=== PATIENT | male | born 1975 | race Caucasian/White ===

== ENCOUNTER 2016-10-21 10:52 | Emergency (ER) | payer BC ==
[~2016-10-21] VITALS: Ht 185.4 cm; Wt 90.0 kg
[~2016-10-21 10:52] MED LIST: DIAZ10 PO; GABA800T PO; IBUP-232 PO; MEDR4PAK PO; PERC5TAB12 PO; PRED20 PO; RISP2TAB37 PO; TRAZ100T4 PO; ZOLO50TA PO
[2016-10-21 10:54] VITALS: BP 135/82; PULSE 88; RESP 16; TEMP 98; O2SAT 98
--- NOTE | 2016-10-21 11:21 | PD ---
HPI Chief Complaint: Injury Time Seen by Provider: 11:16 Travel History International Travel<30 days: No Contact w/Intl Traveler<30days: No Traveled to known affect area: No History of Present Illness HPI 41-year-old male presents to the emergency room via ambulance for evaluation of right ankle pain and swelling. Patient states he drank too much alcohol on [place] last night and doesn't remember what happened. He denies any other complaints at this time. He woke up this morning to go to the bathroom and tried to take a step but had excruciating pain. Pain is localized to the right anterior ankle with radiation to bilateral malleoli and into the foot. He called the ambulance because he cannot drive. He has not taken anything for pain. Denies paresthesias. PFSH Past Medical History Autoimmune Disease: No Bipolar Disorder: Yes Anxiety: Yes Depression: Yes Cancer: No Cardiovascular Problems: No Diabetes: No Diminished Hearing: No Genitourinary: No Implanted Vascular Access Dvce: No Musculoskeletal: Yes Neurologic: No Psychiatric: Yes (BIPOLAR) Reproductive: No Respiratory: No Immunizations Current: Yes Seizures: Yes Thyroid Disease: No Past Surgical History Endocrine Surgery: Yes (RIGHT BUTTOCK LANCED) Other Surgery: Yes (SPIDER BITE LANCED RIGHT BUTT) Social History Alcohol Use: Yes (RECREATIONALLY) Tobacco Use: Yes (1/2 ppd) Substance Use: No Allergies-Medications (Allergen,Severity, Reaction): Coded Allergies: Penicillin (Verified Allergy, Severe, 10/21/16) Reported Meds & Prescriptions Reported Meds & Active Scripts Active Percocet (Oxycodone-Acetaminophen) 5-325 mg Tab 1 Tab PO Q6H PRN Ibuprofen 600 Mg Tab 600 Mg PO Q6H PRN Medrol Dosepak (Methylprednisolone) 4 Mg Dspk 4 Mg PO DIRECTED Per Pharmacist direction Valium (Diazepam) 10 Mg Tab 10 Mg PO BID PRN Reported Trazodone (Trazodone HCl) 100 Mg Tab 100 Mg PO HS Zoloft (Sertraline HCl) 50 Mg Tab 50 Mg PO HS Risperdal (Risperidone) 2 Mg Tab 2 Mg PO HS Prednisone 20 Mg Tab 20 Mg PO BID Gabapentin 800 Mg Tab 800 Mg PO QID Review of Systems Except as stated in HPI: all other systems reviewed are Neg Physical Exam Narrative GENERAL: Well-nourished, well-developed male in no acute distress. Afebrile. SKIN: Warm and dry. HEAD: Normocephalic. EYES: No scleral icterus. No injection or drainage. NECK: Supple, trachea midline. No JVD or lymphadenopathy. CARDIOVASCULAR: Regular rate and rhythm without murmurs, gallops, or rubs. RESPIRATORY: Breath sounds equal bilaterally. No accessory muscle use. EXTREMITY: Right ankle extremely tender to palpation over the anterior aspect and on the lateral malleolus. There is mild to moderate edema over the lateral malleolus. Limited range of motion in the and ankle secondary to pain. 2+ dorsalis pedis pulse with less than 2 second capillary refill distally. Data Data Last Documented VS Vital Signs Date Time Temp Pulse Resp B/P Pulse Ox O2 Delivery O2 Flow Rate FiO2 10/21/16 10:54 98.0 88 16 135/82 98 Room Air Orders Ankle, Complete ([id number]) (10/21/16 ) Foot, Limited (2vws) (10/21/16 ) MDM Medical Decision Making Medical Screen Exam Complete: Yes Emergency Medical Condition: Yes Medical Record Reviewed: Yes Differential Diagnosis Sprain versus fracture versus high sprain versus strain Narrative Course 41-year-old male presents to the emergency room for evaluation of right ankle pain and swelling since this morning. States he injured it last night during a [employer] [place] republic[employer] but does not remember how because he drank too much alcohol. Patient denies any other injuries. Physical exam reveals mild to moderate edema over the lateral malleolus. There is limited range of motion of the ankle and foot secondary to pain. Right lower extremity is neurovascularly intact with 2+ dorsalis pedis pulse. Denies paresthesias. No knee pain. X- ray of the ankle and foot are negative for acute bony abnormality. There is ankle sprain. Patient discharged with crutches and ankle stirrup. Told to follow up with primary care physician or return to the emergency room for worsening symptoms. He understands and agrees to plan. Diagnosis Primary Impression: Ankle sprain Qualified Code: S93.401A - Sprain of right ankle, unspecified ligament, initial encounter Referrals: Primary Care Physician Patient Instructions: Ankle Sprain (ED), General Instructions Additional Instructions: Rest and drink plenty of fluids. Use crutches and splint as needed for pain. Take ibuprofen with food as directed, as needed for pain. Apply ice to the affected area for 20 minutes at a time, as needed for pain and swelling. Follow-up with a primary care physician. Return to the emergency room for worsening symptoms. Med/Other Pt SpecificInfo: Orthopedic Instructions Disposition: 01 DISCHARGE HOME Condition: Stable Ani Zarco Oct 21, 2016 11:21
--- NOTE | 2016-10-21 12:24 | RADRPT ---
EXAM DATE/TIME: 10/21/2016 12:05 [facility] COMPARISON: FOOT RIGHT LIMITED (2VWS), October 21, 2016, 12:07. INDICATIONS : Pain. MEDICAL HISTORY : None. SURGICAL HISTORY : None. ENCOUNTER: Initial ACUITY: 1 day PAIN SCORE: 5/10 LOCATION: Right lateral ankle. FINDINGS: Small well-corticated ossific fragment at the tip of the medial malleolus, nonacute. No acute fractur e or dislocation. Plantar calcaneal spur. Ankle mortise is approximated. CONCLUSION: No acute disease. Kunal Li MD on October 21, 2016 at 12:22 Board Certified Radiologist. This report was verified electronically.
--- NOTE | 2016-10-21 12:26 | RADRPT ---
EXAM DATE/TIME: 10/21/2016 12:07 [facility] COMPARISON: ANKLE RIGHT COMPLETE ([id number]), October 21, 2016, 12:05. INDICATIONS : Pain. MEDICAL HISTORY : None. SURGICAL HISTORY : None. ENCOUNTER: Initial ACUITY: 1 day PAIN SCORE: 5/10 LOCATION: Right lateral foot. FINDINGS: Two view examination of the right foot demonstrates no soft tissue swelling, dislocation, or fracture . The calcaneus is intact. Bony mineralization is normal. Plantar calcaneal spur. CONCLUSION: No acute disease. Kunal Li MD on October 21, 2016 at 12:24 Board Certified Radiologist. This report was verified electronically.
== END 2016-10-21 12:50 | disposition home or self-care (01) ==
LOC: NEPB 10:52
DX: S93.401A Sprain of unspecified ligament of right ankle, initial encounter (principal); X58.XXXA Exposure to other specified factors, initial encounter
CPT/HCPCS: 73610; 73620; 99283; E0113; L1906

== ENCOUNTER 2016-10-25 22:57 | Emergency (ER) | payer BC ==
[~2016-10-25] VITALS: Ht 185.4 cm; Wt 91.0 kg
[2016-10-25 23:00] VITALS: BP 122/83; PULSE 81; RESP 15; TEMP 98.1; O2SAT 98
--- NOTE | 2016-10-25 23:26 | PD ---
HPI Chief Complaint: Injury Time Seen by Provider: 23:15 Travel History International Travel<30 days: No Contact w/Intl Traveler<30days: No Traveled to known affect area: No History of Present Illness HPI 41-year-old left-hand dominant white male presents to emergency department for evaluation of left hand pain after allegedly fall the shower prior to arrival. He is complaining of pain along the lateral aspect exam. Mild to moderate intensity. Worse with movement. Some relief with elevation and ice. No other injuries. PFSH Past Medical History Narrative Medical Bipolar Autoimmune Disease: No Bipolar Disorder: Yes Anxiety: Yes Depression: Yes Cancer: No Cardiovascular Problems: No Diabetes: No Diminished Hearing: No Genitourinary: No Implanted Vascular Access Dvce: No Musculoskeletal: Yes Neurologic: No Psychiatric: Yes (BIPOLAR) Reproductive: No Respiratory: No Immunizations Current: Yes Seizures: Yes Thyroid Disease: No Tetanus Vaccination: < 5 Years Past Surgical History Narrative Surgical RIGHT BUTTOCK LANCED Other Surgery: Yes (SPIDER BITE LANCED RIGHT BUTT) Social History Alcohol Use: Yes (RECREATIONALLY) Tobacco Use: Yes (10/22 ppd) Substance Use: No Allergies-Medications (Allergen,Severity, Reaction): Coded Allergies: Penicillin (Verified Allergy, Severe, 10/25/16) Reported Meds & Prescriptions Reported Meds & Active Scripts Active Percocet (Oxycodone-Acetaminophen) 5-325 mg Tab 1 Tab PO Q6H PRN Ibuprofen 600 Mg Tab 600 Mg PO Q6H PRN Medrol Dosepak (Methylprednisolone) 4 Mg Dspk 4 Mg PO DIRECTED Per Pharmacist direction Valium (Diazepam) 10 Mg Tab 10 Mg PO BID PRN Reported Trazodone (Trazodone HCl) 100 Mg Tab 100 Mg PO HS Zoloft (Sertraline HCl) 50 Mg Tab 50 Mg PO HS Risperdal (Risperidone) 2 Mg Tab 2 Mg PO HS Prednisone 20 Mg Tab 20 Mg PO BID Gabapentin 800 Mg Tab 800 Mg PO QID Review of Systems Except as stated in HPI: all other systems reviewed are Neg Physical Exam Narrative GENERAL: This is a well-nourished, well-developed patient, in no apparent distress. SKIN: No rashes, ecchymoses or lesions. Warm and dry. HEAD: Atraumatic. Normocephalic. EYES: PERRL, EOMI, no discharge or injection. No scleral icterus. EARS: Clear NOSE: Nasal turbinates appear normal. THROAT: Mucosa pink and moist. Airway patent. NECK: Trachea midline. supple, moves head freely. LUNGS: Clear to auscultation. CV: Regular in rhythm. ABDOMEN: Soft nontender. EXT: No clubbing cyanosis. Examination of left upper extremity reveals pain along the fifth metacarpal. There is mild swelling. The skin is intact. No pain in the fingers, wrist, elbow and shoulder. The right upper extremity as well as lower extremities are without localizing bony tenderness or deformity. Median/ulnar/radial nerves intact. Data Data Last Documented VS Vital Signs Date Time Temp Pulse Resp B/P Pulse Ox O2 Delivery O2 Flow Rate FiO2 10/25/16 23:00 98.1 81 15 122/83 98 Room Air Orders Hand, Complete ([id number]) (10/25/16 23:14) Ice/Cold Pack (10/25/16 23:14) Fiberglass Splint Forearm Adul (10/25/16 ) Splint Or Brace Apply/Monitor (10/25/16 23:38) Acetamin-Hydrocod 325-5 Mg ([place] 5-325 (10/25/16 23:45) MDM Medical Decision Making Medical Screen Exam Complete: Yes Emergency Medical Condition: Yes Medical Record Reviewed: Yes Interpretation(s) Left hand: Positive fracture the fifth metacarpal Differential Diagnosis MDM: High Differential diagnoses: Fracture, sprain, strain, dislocation, contusion, neurovascular injury Narrative Course X-ray confirms a fifth metacarpal fracture. The patient is placed in an ulnar gutter splint. Diagnosis Primary Impression: Fracture of metacarpal of left hand, closed Qualified Code: S62.309A - Fracture of metacarpal of left hand, closed, initial encounter Patient Instructions: General Instructions, Narcotic given in the ED Additional Instructions: Rest. Elevation. Splint. Ice. Lortab for pain. 3 Advil every 6 hours. Follow-up with a orthopedic hand surgeon in the next 3-5 days. Return to the ER for emergencies. Med/Other Pt SpecificInfo: Prescription(s) given Scripts Hydrocodone-Acetaminophen (Lortab)5-325 Mg Tab1 Tab PO Q6H PRN (PAIN) #20 TAB Prov:Svetlana Razo MD 10/25/16 Disposition: 01 DISCHARGE HOME Condition: Stable Raimundo Anderson Oct 25, 2016 23:26
[2016-10-25] MEDS ORDERED: HYDR-3533 PO (23:39)
--- NOTE | 2016-10-25 23:41 | RADRPT ---
EXAM DATE/TIME: 10/25/2016 23:27 [facility] COMPARISON: No previous studies available for comparison. INDICATIONS : Patient fell today in shower. Complains of pain in left hand near 5th MCPJ. MEDICAL HISTORY : None. SURGICAL HISTORY : None. ENCOUNTER: Initial ACUITY: 1 day PAIN SCORE: 10/10 LOCATION: Left Hand FINDINGS: There is a fracture through the distal metaphysis of the 5th metacarpal with moderate palmar angulati on. Alignment at the 5th MCP joint is maintained. No radiopaque foreign bodies. The remainder of t he osseous structures of the hand are intact. CONCLUSION: Boxer's fracture with moderate palmar angulation. José Rojas MD on October 25, 2016 at 23:38 Board Certified Radiologist. This report was verified electronically.
[2016-10-25] MEDS ORDERED: ACETAMINOPHEN/HYDROcodone 325 MG/5 MG TAB PO ONE (23:45)
== END 2016-10-25 23:47 | disposition home or self-care (01) ==
LOC: NEPB 22:57
DX: S62.367A Nondisplaced fracture of neck of fifth metacarpal bone, left hand, initial encounter for closed fracture (principal); F17.210 Nicotine dependence, cigarettes, uncomplicated; W18.39XA Other fall on same level, initial encounter; Y93.E1 Activity, personal bathing and showering; Y99.8 Other external cause status
CPT/HCPCS: 29125; 73130

== ENCOUNTER 2017-04-12 13:35 | Emergency (ER) | payer SELFPAY ==
[~2017-04-12] VITALS: Ht 185.4 cm; Wt 90.0 kg
[~2017-04-12 13:35] MED LIST changes: +HYDR-3533 PO
[2017-04-12 13:37] VITALS: BP 130/72; PULSE 66; RESP 20; TEMP 98.2; O2SAT 99
[2017-04-12 14:01] LABS: BASOPHIL # 0.1 TH/MM3 (0-0.2); BASOPHIL % 1.2 % (0.0-2.0); EOSINOPHIL # 0.2 TH/MM3 (0-0.4); EOSINOPHIL % 3.8 % (0.0-4.0); HEMATOCRIT 42.9 % (39.0-51.0); HEMO FLAGS DIFF FINAL; LYMPH % 34.9 % (9.0-44.0); LYMPHOCYTE # 1.9 TH/MM3 (1.0-4.8); MEAN CELL VOLUME 85.9 FL (80.0-100.0); MEAN CORPUSCULAR HEMOGLOBIN 30.7 PG (27.0-34.0); MEAN CORPUSCULAR HGB CONC 35.7 % (32.0-36.0); MONO % 5.7 % (0.0-8.0); NEUT % 54.4 % (16.0-70.0); PLATELET COUNT 259 TH/MM3 (150-450); RED BLOOD COUNT 4.99 MIL/MM3 (4.50-5.90); RED CELL DISTRIBUTION WIDTH 13.1 % (11.6-17.2); WHITE BLOOD COUNT 5.5 TH/MM3 (4.0-11.0)
[2017-04-12 14:04] LABS: BLOOD, URINE NEG (NEG); GLUCOSE,URINE NEG (NEG); KETONE, URINE NEG (NEG); NITRITE,URINE NEG (NEG); URINE COLOR YELLOW (YELLW/STRAW)
[2017-04-12 14:07] LABS: COMMENT (UR) CULT NOT INDICATED; CULTURE IF INDICATED CULT NOT INDICATED
[2017-04-12 14:23] LABS: BICARBONATE 27.4 MEQ/L (21.0-32.0); POTASSIUM 3.6 MEQ/L (3.5-5.1)
[2017-04-12] MEDS ORDERED: TRAZ50TA12 PO (14:58)
--- NOTE | 2017-04-12 14:59 | PD ---
HPI Chief Complaint: Flank/Kidney Pain Time Seen by Provider: 14:38 Travel History International Travel<30 days: No Contact w/Intl Traveler<30days: No Traveled to known affect area: No History of Present Illness HPI This is a 41-year-old male who presents the emergency department reporting 3 weeks of left-sided flank pain. He says that initially started as dull but has gotten sharper and more severe over the past several days. He says he was just recently released from correction. He says his had some vomiting intermittently and denies any dysuria or hematuria. He does say he had a temperature of 100.0 at home. He does have a history of IV drug use and last used 2 months ago. PFSH Past Medical History Autoimmune Disease: No Bipolar Disorder: Yes Anxiety: Yes Depression: Yes Cancer: No Cardiovascular Problems: No Diabetes: No Diminished Hearing: No Genitourinary: No Implanted Vascular Access Dvce: No Musculoskeletal: Yes Neurologic: No Psychiatric: Yes (BIPOLAR) Reproductive: No Respiratory: No Immunizations Current: Yes Seizures: Yes Thyroid Disease: No Past Surgical History Other Surgery: Yes (SPIDER BITE LANCED RIGHT BUTT) Social History Alcohol Use: Yes (RECREATIONALLY) Tobacco Use: Yes (10/22 ppd) Substance Use: No Allergies-Medications (Allergen,Severity, Reaction): Coded Allergies: Penicillin (Verified Allergy, Severe, 10/25/16) Reported Meds & Prescriptions Reported Meds & Active Scripts Active Reported Trazodone (Trazodone HCl) 50 Mg Tab 50 Mg PO HS Risperdal (Risperidone) 2 Mg Tab 2 Mg PO HS Review of Systems Except as stated in HPI: all other systems reviewed are Neg Physical Exam Narrative GENERAL:Well appearing, no acute distress SKIN: Focused skin assessment warm and dry. HEAD: Atraumatic. Normocephalic. EYES: Pupils equal and round. No injection or drainage. ENT: Moist mucous membranes NECK: Trachea midline. CARDIOVASCULAR: Regular rate and rhythm. No murmur appreciated. RESPIRATORY: Clear to auscultation. Breath sounds equal bilaterally. GASTROINTESTINAL: Abdomen soft, non-tender, nondistended. : Left CVA tenderness. MUSCULOSKELETAL: No obvious deformities. No focal vertebral tenderness. NEUROLOGICAL: Awake and alert. No obvious cranial nerve deficits. Moving all extremities. PSYCHIATRIC: Appropriate mood and affect; insight and judgment normal. Data Data Last Documented VS Vital Signs Date Time Temp Pulse Resp B/P Pulse Ox O2 Delivery O2 Flow Rate FiO2 04/12/17 13:37 98.2 66 20 130/72 99 Room Air Orders Urinalysis - C+S If Indicated (04/12/17 13:40) Complete Blood Count With Diff (04/12/17 13:40) Basic Metabolic Panel (Bmp) (04/12/17 13:40) Ct Abd/Pel W/O Iv Contrast (04/12/17 ) Labs Laboratory Tests Test 04/12/17 13:45 White Blood Count 5.5 TH/MM3 Red Blood Count 4.99 MIL/MM3 Hemoglobin 15.3 GM/DL Hematocrit 42.9 % Mean Corpuscular Volume 85.9 FL Mean Corpuscular Hemoglobin 30.7 PG Mean Corpuscular Hemoglobin 35.7 % Concent Red Cell Distribution Width 13.1 % Platelet Count 259 TH/MM3 Mean Platelet Volume 8.6 FL Neutrophils (%) (Auto) 54.4 % Lymphocytes (%) (Auto) 34.9 % Monocytes (%) (Auto) 5.7 % Eosinophils (%) (Auto) 3.8 % Basophils (%) (Auto) 1.2 % Neutrophils # (Auto) 3.0 TH/MM3 Lymphocytes # (Auto) 1.9 TH/MM3 Monocytes # (Auto) 0.3 TH/MM3 Eosinophils # (Auto) 0.2 TH/MM3 Basophils # (Auto) 0.1 TH/MM3 CBC Comment DIFF FINAL Differential Comment Urine Color YELLOW Urine Turbidity CLEAR Urine pH 7.0 Urine Specific [place] 1.012 Urine Protein NEG mg/dL Urine Glucose (UA) NEG mg/dL Urine Ketones NEG mg/dL Urine Occult Blood NEG Urine Nitrite NEG Urine Bilirubin NEG Urine Urobilinogen LESS THAN 2.0 MG/DL Urine Leukocyte Esterase NEG Urine RBC LESS THAN 1 /hpf Urine WBC 1 /hpf Microscopic Urinalysis Comment CULT NOT INDICATED Sodium Level 143 MEQ/L Potassium Level 3.6 MEQ/L Chloride Level 108 MEQ/L Carbon Dioxide Level 27.4 MEQ/L Anion Gap 8 MEQ/L Blood Urea Nitrogen 4 MG/DL Creatinine 1.16 MG/DL Estimat Glomerular Filtration 69 ML/MIN Rate Random Glucose 85 MG/DL Calcium Level 9.0 MG/DL MDM Medical Decision Making Medical Screen Exam Complete: Yes Emergency Medical Condition: Yes Interpretation(s) Afebrile, no tachycardia, normotensive No leukocytosis Electrolytes are reassuring Urinalysis: No infection Last 24 hours Impressions Abdomen/Pelvis CT 04/12/17 0000 Signed Impressions: Service Date/Time: Wednesday, April 12, 2017 15:02 - CONCLUSION: 1. No acute findings in abdomen and pelvic CT. Specifically no renal calculi or evidence for obstructive uropathy. Raimundo Andino MD Differential Diagnosis Nephrolithiasis, pyelonephritis, musculoskeletal back pain, discitis, epidural abscess Narrative Course This is a 41-year-old male who presents to the emergency department with left- sided flank pain. He does have a history of IV drug use but he is afebrile here. Labs were obtained which demonstrate no leukocytosis and CT abdomen and pelvis was obtained which was reassuring. Patient's pain is in the left flank and really is not in the midline. I have a very low suspicion for discitis or epidural abscess given his absence of fever, tachycardia, or leukocytosis and his benign exam. I asked him to return to the emergency department if he develops fever, worsening pain, or new symptoms. Diagnosis Primary Impression: Flank pain Patient Instructions: General Instructions Additional Instructions: If you develop fever return to the emergency department immediately. If you develop weakness of your legs, difficulty walking, numbness of your legs or your genital or rectal area, loss of your bowel or bladder, or difficulty urinating return to the emergency department immediately. Followup with your primary care physician in one week if your symptoms have not improved. Med/Other Pt SpecificInfo: No Change to Meds Disposition: 01 DISCHARGE HOME Condition: Stable Odalys George MD Apr 12, 2017 14:58
--- NOTE | 2017-04-12 15:37 | RADRPT ---
EXAM DATE/TIME: 04/12/2017 15:02 [facility] COMPARISON: No previous studies available for comparison. INDICATIONS : Evaluate for renal stone, left flank pain. ORAL CONTRAST: No oral contrast ingested. RADIATION DOSE: 13.66 CTDIvol (mGy) MEDICAL HISTORY : Seizures. SURGICAL HISTORY : None. ENCOUNTER: Initial ACUITY: 3 weeks PAIN SCALE: 5/10 LOCATION: Left flank. TECHNIQUE: Volumetric scanning of the abdomen and pelvis was performed. Using automated exposure control and ad justment of the mA and/or kV according to patient size, radiation dose was kept as low as reasonably achievable to obtain optimal diagnostic quality images. DICOM format image data is available electro nically for review and comparison. FINDINGS: Mild dependent atelectasis at the lung bases. No acute findings in the liver, spleen, adrenals, kidne ys or pancreas. No calcified gallstones or biliary ductal dilatation. There is no free fluid. No free air. No pelvic mass or adenopathy. No bladder calculi. No acute bony CONCLUSION: 1. No acute findings in abdomen and pelvic CT. Specifically no renal calculi or evidence for obstruct alix uropathy. Raimundo Andino MD on April 12, 2017 at 15:21 Board Certified Radiologist. This report was verified electronically.
[2017-04-12] MEDS ORDERED: GADODIAMIDE PF 287 MG/ML 5 ML VIAL (for RAD MRI) IV ONE (17:46)
--- NOTE | 2017-04-12 18:25 | RADRPT ---
EXAM DATE/TIME: 04/12/2017 17:19 [facility] COMPARISON: CT ABDOMEN & PELVIS W/O CONTRAST, April 12, 2017, 15:02. INDICATIONS : Abscess. CONTRAST: 18 cc Omniscan (gadodiamide) IV MEDICAL HISTORY : None. SURGICAL HISTORY : Right knee. ENCOUNTER: Subsequent ACUITY: 1 day PAIN SCORE: 7/10 LOCATION: Lower back. TECHNIQUE: Multiplanar multisequence MRI of the lumbar spine was performed with and without contrast. FINDINGS: The most caudal appearing lumbar vertebra is numbered as L5. VERTEBRAE: Modic type I endplate changes seen at L5-S1. Remaining marrow signal is homogeneous. Vertebral body h eights are maintained. CONUS: Normal level and configuration. POST CONTRAST: No abnormal areas of contrast enhancement are seen. T12-L1: The thecal sac has a normal diameter. No evidence of disc bulge or protrusion. The neural foramina are patent bilaterally. L1-L2: The thecal sac has a normal diameter. No evidence of disc bulge or protrusion. The neural foramina are patent bilaterally. L2-L3: The thecal sac has a normal diameter. No evidence of disc bulge or protrusion. The neural foramina are patent bilaterally. L3-L4: The thecal sac has a normal diameter. No evidence of disc bulge or protrusion. The neural foramina are patent bilaterally. Moderate bony hypertrophy of the facets. L4-L5: There is disc desiccation with preservation of the disc space height. Linear high T2 signal involving the posterior annulus. A mild broad-based disc bulge. Moderate ligamentum flavum hypertrophy and bon y hypertrophy of the facets. Lateral recesses and central canal are patent. There is some narrowing o f the neural foramina bilaterally without impingement. L5-S1: Mild disc space height loss and mild disc desiccation. Central bulge. Lateral recesses and central ca nal are patent. Narrowing of the neural foramina bilaterally without impingement. Facets are unremark able. CONCLUSION: 1. Degenerative changes at L4-L5 and L5-S1 without neural impingement or central canal stenosis. Deta ils are given above. 2. No abscess. José Main Jr., MD on April 12, 2017 at 18:17 Board Certified Radiologist. This report was verified electronically.
[2017-04-12] MEDS ORDERED: NAPR500 PO (18:34)
[2017-04-12] MEDS ORDERED: TIZA4CAP3 PO (18:34)
--- NOTE | 2017-04-12 18:34 | PD ---
Data Data Last Documented VS Vital Signs Date Time Temp Pulse Resp B/P Pulse Ox O2 Delivery O2 Flow Rate FiO2 04/12/17 13:37 98.2 66 20 130/72 99 Room Air Orders Urinalysis - C+S If Indicated (04/12/17 13:40) Complete Blood Count With Diff (04/12/17 13:40) Basic Metabolic Panel (Bmp) (04/12/17 13:40) Ct Abd/Pel W/O Iv Contrast (04/12/17 ) Mri L Spine W&W/O Contrast (04/12/17 ) Gadodiamide Pf Inj (Omniscan Pf Inj) (04/12/17 17:46) Labs Laboratory Tests Test 04/12/17 13:45 White Blood Count 5.5 TH/MM3 Red Blood Count 4.99 MIL/MM3 Hemoglobin 15.3 GM/DL Hematocrit 42.9 % Mean Corpuscular Volume 85.9 FL Mean Corpuscular Hemoglobin 30.7 PG Mean Corpuscular Hemoglobin 35.7 % Concent Red Cell Distribution Width 13.1 % Platelet Count 259 TH/MM3 Mean Platelet Volume 8.6 FL Neutrophils (%) (Auto) 54.4 % Lymphocytes (%) (Auto) 34.9 % Monocytes (%) (Auto) 5.7 % Eosinophils (%) (Auto) 3.8 % Basophils (%) (Auto) 1.2 % Neutrophils # (Auto) 3.0 TH/MM3 Lymphocytes # (Auto) 1.9 TH/MM3 Monocytes # (Auto) 0.3 TH/MM3 Eosinophils # (Auto) 0.2 TH/MM3 Basophils # (Auto) 0.1 TH/MM3 CBC Comment DIFF FINAL Differential Comment Urine Color YELLOW Urine Turbidity CLEAR Urine pH 7.0 Urine Specific [place] 1.012 Urine Protein NEG mg/dL Urine Glucose (UA) NEG mg/dL Urine Ketones NEG mg/dL Urine Occult Blood NEG Urine Nitrite NEG Urine Bilirubin NEG Urine Urobilinogen LESS THAN 2.0 MG/DL Urine Leukocyte Esterase NEG Urine RBC LESS THAN 1 /hpf Urine WBC 1 /hpf Microscopic Urinalysis Comment CULT NOT INDICATED Sodium Level 143 MEQ/L Potassium Level 3.6 MEQ/L Chloride Level 108 MEQ/L Carbon Dioxide Level 27.4 MEQ/L Anion Gap 8 MEQ/L Blood Urea Nitrogen 4 MG/DL Creatinine 1.16 MG/DL Estimat Glomerular Filtration 69 ML/MIN Rate Random Glucose 85 MG/DL Calcium Level 9.0 MG/DL MDM Supervised Visit with RACHEL: No Narrative Course The patient was initially evaluated by the previous provider and signed out to me at the beginning of my shift pending MRI of the lumbar spine and disposition. See her note for further details. Briefly this is a 41-year-old male with a history of IVDU who is here for evaluation of flank pain and lower back pain. Symptoms have been going on for about 2 days and are worse with movements. The initial workup was for possible nephrolithiasis/ureterolithiasis. CBC and BMP are unremarkable. CT abdomen pelvis shows no acute intra-abdominal findings, specifically no ureteral calculi or signs of ureteral obstruction. Given the patient's history of IVDU, there was concern of possible discitis/epidural abscess, so MRI lumbar spine was ordered. MRI lumbar spine: CONCLUSION: 1. Degenerative changes at L4-L5 and L5-S1 without neural impingement or central canal stenosis. Details are given above. 2. No abscess. On my assessment of the patient he is sleeping comfortably. Currently he is pain-free. He reports that his symptoms are made worse with movements. There are no red flags for low back pain. Patient is stable for discharge home with outpatient follow-up with a primary care physician this week. He was informed on when to return to the emergency department. He verbalizes understanding and agreement with plan. Diagnosis Primary Impression: Flank pain Patient Instructions: General Instructions Additional Instruction: If you develop fever return to the emergency department immediately. If you develop weakness of your legs, difficulty walking, numbness of your legs or your genital or rectal area, loss of your bowel or bladder, or difficulty urinating return to the emergency department immediately. Followup with your primary care physician in one week if your symptoms have not improved. Scripts Tizanidine 4 Mg Cap4 Mg PO BID 14 Days Ref 0 Prov:Gildardo Pham MD 04/12/17 Naproxen (Naprosyn)500 Mg [id number] Mg PO BID 14 Days Ref 0 Prov:Gildardo Pham MD 04/12/17 Disposition: 01 DISCHARGE HOME Condition: Stable Gildardo Pham MD Apr 12, 2017 18:34
== END 2017-04-12 19:04 | disposition home or self-care (01) ==
LOC: NEPD 13:35
DX: R10.9 Unspecified abdominal pain (principal); M54.5 Low back pain; F17.200 Nicotine dependence, unspecified, uncomplicated
CPT/HCPCS: 72158; 74176; 80048; 81001; 85025; 99284; A9579

== ENCOUNTER 2017-06-24 18:41 | Emergency (ER) | payer SELFPAY ==
[~2017-06-24] VITALS: Ht 185.4 cm; Wt 92.0 kg
[~2017-06-24 18:41] MED LIST changes: -DIAZ10 PO; -GABA800T PO; -HYDR-3533 PO; -IBUP-232 PO; -MEDR4PAK PO; +NAPR500 PO; -PERC5TAB12 PO; -PRED20 PO; +TIZA4CAP3 PO; -TRAZ100T4 PO; +TRAZ50TA12 PO; -ZOLO50TA PO
[2017-06-24 18:49] VITALS: BP 143/90; PULSE 76; RESP 18; TEMP 98.1; O2SAT 98
[2017-06-24] MEDS ORDERED: GABA400C5 PO (19:04)
--- NOTE | 2017-06-24 19:27 | PD ---
HPI Chief Complaint: Musculoskeletal Complaint Time Seen by Provider: 19:19 Travel History International Travel<30 days: No Contact w/Intl Traveler<30days: No Traveled to known affect area: No History of Present Illness HPI 42-year-old female presents to the emergency room for evaluation of right knee pain and swelling after injury just prior to arrival. Patient states he tripped on a stair and fell forward landing directly on his right lateral knee. He has been able to walk on it but is fearful that his hardware was determined. Patient tibial plateau surgery 2 years ago in [place]. Patient reports pain and swelling localized to the right lateral knee without radiation. Pain is worsened with any range of motion. Denies paresthesias. He has not taken anything for symptoms. PFSH Past Medical History Autoimmune Disease: No Bipolar Disorder: Yes Anxiety: Yes Depression: Yes Cancer: No Cardiovascular Problems: No Diabetes: No Diminished Hearing: No Genitourinary: No Implanted Vascular Access Dvce: No Musculoskeletal: Yes Neurologic: No Psychiatric: Yes (BIPOLAR) Reproductive: No Respiratory: No Immunizations Current: Yes Seizures: Yes Thyroid Disease: No Tetanus Vaccination: < 5 Years Influenza Vaccination: Yes Past Surgical History Endocrine Surgery: Yes (RIGHT BUTTOCK LANCED) Other Surgery: Yes (SPIDER BITE LANCED RIGHT BUTTOCK) Social History Alcohol Use: Yes (RECREATIONALLY) Tobacco Use: Yes (1 ppd) Substance Use: No Allergies-Medications (Allergen,Severity, Reaction): Coded Allergies: penicillin G (Unverified Allergy, Severe, 06/24/17) Reported Meds & Prescriptions Reported Meds & Active Scripts Active Reported Gabapentin 400 Mg Cap 400 Cap PO QID Trazodone (Trazodone HCl) 50 Mg Tab 50 Mg PO HS Risperdal (Risperidone) 2 Mg Tab 2 Mg PO HS Review of Systems Except as stated in HPI: all other systems reviewed are Neg Physical Exam Narrative GENERAL: Well-nourished, well-developed male in no acute distress. Afebrile. Ambulatory. SKIN: Focused skin assessment warm/dry. Mild ecchymosis over the right lateral knee. HEAD: Normocephalic. EYES: No scleral icterus. No injection or drainage. NECK: Supple, trachea midline. No JVD or lymphadenopathy. CARDIOVASCULAR: Regular rate and rhythm without murmurs, gallops, or rubs. RESPIRATORY: Breath sounds equal bilaterally. No accessory muscle use. MUSCULOSKELETAL: No cyanosis. Mild to moderate edema of the right knee. No obvious effusion. Full range of motion. 2+ dorsalis pedis pulse. There is tenderness to palpation over the right lateral tibia. Data Data Last Documented VS Vital Signs Date Time Temp Pulse Resp B/P (MAP) Pulse Ox O2 Delivery O2 Flow Rate FiO2 06/24/17 18:49 98.1 76 18 143/90 (107) 98 Orders Orders Tibia/Fibula (Ap/Lat) (06/24/17 ) John Bandage (06/24/17 19:36) MDM Medical Decision Making Medical Screen Exam Complete: Yes Emergency Medical Condition: Yes Medical Record Reviewed: Yes Differential Diagnosis Fracture, internal derangement, sprain, strain Narrative Course 42-year-old male presents to the emergency room for evaluation of right lateral knee pain after trip and fall earlier today. Patient landed directly on his right knee. He is concerned because he has hardware from his surgery 2 years ago. Right lower extremity is neurovascularly intact with 2+ dorsalis pedis pulse. Patient has full range of motion. Mild edema of the knee without obvious effusion. X-ray shows no acute bony abnormality. No hardware noted. Patient states he must have hardware removed. There is a surgical scar present. Patient was reassured. He was told to follow-up with her primary care physician for outpatient CT or MRI if symptoms persist. Discharged with John wrap and crutches. He will return for worsening symptoms. He understands and agrees to plan. Diagnosis Primary Impression: Contusion of right knee Qualified Codes: S80.01XA - Contusion of right knee, initial encounter Referrals: Primary Care Physician Additional Instructions: Rest and drink plenty of fluids. Take ibuprofen with food as directed, as needed for pain. Apply ice to the affected area for 20 minutes at a time, as needed for pain and swelling. Follow-up with a primary care physician. Return to the emergency room for worsening symptoms. Med/Other Pt SpecificInfo: Prescription(s) given Disposition: 01 DISCHARGE HOME Condition: Stable Ani Zarco Jun 24, 2017 19:27
--- NOTE | 2017-06-24 19:33 | RADRPT ---
EXAM DATE/TIME: 06/24/2017 19:02 [facility] COMPARISON: No previous studies available for comparison. INDICATIONS : Right lower leg pain status post fall on stairs. MEDICAL HISTORY : Prior fracture, proximal tibia, right. SURGICAL HISTORY : Fracture repair, proximal tibia, right. ENCOUNTER: Initial ACUITY: 1 day PAIN SCORE: 9/10 LOCATION: Right proximal lower leg. FINDINGS: Two view examination of the right tibia demonstrates no evidence of fracture or dislocation. Bony mi neralization is normal. The soft tissue structures are intact. CONCLUSION: Negative trauma study. Nikko Mejia MD on June 24, 2017 at 19:31 Board Certified Radiologist. This report was verified electronically.
== END 2017-06-24 19:52 | disposition home or self-care (01) ==
LOC: PHEFT 18:41
DX: S80.01XA Contusion of right knee, initial encounter (principal); F17.200 Nicotine dependence, unspecified, uncomplicated; Z87.39 Personal history of other diseases of the musculoskeletal system and connective tissue; Z86.59 Personal history of other mental and behavioral disorders; Z86.69 Personal history of other diseases of the nervous system and sense organs; W01.0XXA Fall on same level from slipping, tripping and stumbling without subsequent striking against object, initial encounter
CPT/HCPCS: 73590; 99283; E0113

== ENCOUNTER 2017-09-22 14:45 | Emergency (ER) | payer SELFPAY ==
[~2017-09-22] VITALS: Ht 185.4 cm; Wt 98.0 kg
[~2017-09-22 14:45] MED LIST changes: +GABA400C5 PO; -NAPR500 PO; -TIZA4CAP3 PO
[2017-09-22 14:51] VITALS: BP 121/79; PULSE 61; RESP 18; TEMP 97.8; O2SAT 95
[2017-09-22] MEDS ORDERED: GABA600T PO (15:15)
[2017-09-22] MEDS ORDERED: RISP1 PO (15:15)
[2017-09-22] MEDS ORDERED: LEXA20TA PO (15:15)
--- NOTE | 2017-09-22 15:59 | PD ---
HPI Chief Complaint: Laceration/Skin Injury Time Seen by Provider: 15:50 Travel History International Travel<30 days: No Contact w/Intl Traveler<30days: No Traveled to known affect area: No History of Present Illness HPI 42-year-old male was shaving his scrotal area when he accidentally nicked the scrotal skin on the left side. There was bleeding and given the amount of bleeding he decided to come to the emergency room. Currently the bleeding has stopped. Patient says he otherwise feels okay. He does not recall his last tetanus shot. This happened 1 hour prior to coming to the emergency room. [facility] Past Medical History Narrative Medical List of his past medical, surgical, social and family history is reviewed from the nursing note. Autoimmune Disease: No Bipolar Disorder: Yes Anxiety: Yes Depression: Yes Cancer: No Cardiovascular Problems: No Diabetes: No Diminished Hearing: No Genitourinary: No Implanted Vascular Access Dvce: No Musculoskeletal: Yes Neurologic: No Psychiatric: Yes (BIPOLAR) Reproductive: No Respiratory: No Immunizations Current: Yes Seizures: Yes Thyroid Disease: No Past Surgical History Endocrine Surgery: Yes (RIGHT BUTTOCK LANCED) Other Surgery: Yes (SPIDER BITE LANCED RIGHT BUTTOCK) Social History Alcohol Use: Yes (RECREATIONALLY) Tobacco Use: Yes (1 ppd) Substance Use: No Allergies-Medications (Allergen,Severity, Reaction): Coded Allergies: penicillin G (Unverified Allergy, Severe, Anaphylaxis, 09/22/17) Comments List of his allergies reviewed from the nursing note. Reported Meds & Prescriptions Reported Meds & Active Scripts Active Reported Lexapro (Escitalopram Oxalate) 20 Mg Tab 20 Mg PO TID Risperdal (Risperidone) 1 Mg Tab 1 Mg PO DAILY Gabapentin 600 Mg Tab 600 Mg PO TID Trazodone (Trazodone HCl) 50 Mg Tab 50 Mg PO HS Risperdal (Risperidone) 2 Mg Tab 2 Mg PO HS Narrative Medication List of his home medications reviewed from the nursing note. Review of Systems Except as stated in HPI: all other systems reviewed are Neg Physical Exam Narrative GENERAL: Awake, alert, no obvious distress SKIN: Focused skin assessment warm/dry. HEAD: Atraumatic. Normocephalic. EYES: Pupils equal and round. No scleral icterus. No injection or drainage. ENT: No nasal bleeding or discharge. Mucous membranes pink and moist. NECK: Trachea midline. No JVD. CARDIOVASCULAR: Regular rate and rhythm. No murmur appreciated. RESPIRATORY: No accessory muscle use. Clear to auscultation. Breath sounds equal bilaterally. GASTROINTESTINAL: Abdomen soft, non-tender, nondistended. Hepatic and splenic margins not palpable. : Small 0.5 cm superficial laceration on the left scrotal skin. No active bleeding. MUSCULOSKELETAL: No obvious deformities. No clubbing. No cyanosis. No edema. NEUROLOGICAL: Awake and alert. No obvious cranial nerve deficits. Motor grossly within normal limits. Normal speech. PSYCHIATRIC: Appropriate mood and affect; insight and judgment normal. Data Data Last Documented VS Orders Orders Tetanus/Diphtheria Tox Adult (Tetanus/Di (09/22/17 16:15) Ed Discharge Order (09/22/17 16:22) [facility] Medical Decision Making Medical Screen Exam Complete: Yes Emergency Medical Condition: Yes Medical Record Reviewed: Yes Differential Diagnosis Scrotal laceration Narrative Course 4:30 PM patient was given a tetanus shot. Steri-Strips was applied to the wound. He will be discharged home. Patient is comfortable with that plan. Procedures EKG Prior to Arrival: No Diagnosis Primary Impression: Scrotal laceration Qualified Codes: S31.31XA - Laceration without foreign body of scrotum and testes, initial encounter Referrals: Primary Care Physician Additional Instructions: Keep the wound clean and dry. The Steri-Strip will start peeling off on its own once the wound starts to heal. In any case do not peel it off before 5 days. Return to the ER if condition worsens or any other new concerns. Med/Other Pt SpecificInfo: No Change to Meds Disposition: 01 DISCHARGE HOME Condition: Stable Svetlana Razo MD Sep 22, 2017 15:59
[2017-09-22] MEDS ORDERED: TETANUS/DIPHTHERIA TOXOID ADULT 0.5 ML VIAL IM ONE (16:15)
== END 2017-09-22 17:00 | disposition home or self-care (01) ==
LOC: PHED 14:45
DX: S31.31XA Laceration without foreign body of scrotum and testes, initial encounter (principal); F31.9 Bipolar disorder, unspecified; F17.210 Nicotine dependence, cigarettes, uncomplicated; W26.9XXA Contact with unspecified sharp object(s), initial encounter; Z88.0 Allergy status to penicillin; Z79.899 Other long term (current) drug therapy
CPT/HCPCS: 90471; 90714

== ENCOUNTER 2017-10-01 09:25 | Emergency (ER) | payer BC ==
[~2017-10-01] VITALS: Ht 185.4 cm; Wt 97.0 kg
[~2017-10-01 09:25] MED LIST changes: -GABA400C5 PO; +GABA600T PO; +LEXA20TA PO; +RISP1 PO
[2017-10-01 09:33] VITALS: BP 147/81; PULSE 88; RESP 20; TEMP 98.3; O2SAT 96
[2017-10-01] MEDS ORDERED: BENZ100 PO (10:09)
--- NOTE | 2017-10-01 10:09 | PD ---
HPI Chief Complaint: Cold / Flu Symptoms Time Seen by Provider: 09:54 Travel History International Travel<30 days: No Contact w/Intl Traveler<30days: No Traveled to known affect area: No History of Present Illness HPI 42-year-old male here with cough, nasal congestion, sore throat times one day. He coughed frequently last night making it difficult to sleep prompting his visit today. He denies fever, chills, chest pain, shortness of breath, abdominal pain, nausea vomiting or diarrhea. Symptoms severity is moderate. No aggravating or alleviating factors. PFSH Past Medical History Autoimmune Disease: No Bipolar Disorder: Yes Anxiety: Yes Depression: Yes Cancer: No Cardiovascular Problems: No Diabetes: No Diminished Hearing: No Genitourinary: No Implanted Vascular Access Dvce: No Musculoskeletal: Yes Neurologic: No Psychiatric: Yes (BIPOLAR) Reproductive: No Respiratory: No Immunizations Current: Yes Seizures: Yes Thyroid Disease: No Past Surgical History Endocrine Surgery: Yes (RIGHT BUTTOCK LANCED) Other Surgery: Yes (SPIDER BITE LANCED RIGHT BUTTOCK) Social History Alcohol Use: Yes (RECREATIONALLY) Tobacco Use: Yes (1 ppd) Substance Use: No Allergies-Medications (Allergen,Severity, Reaction): Coded Allergies: penicillin G (Verified Allergy, Severe, Anaphylaxis, 10/01/17) Reported Meds & Prescriptions Reported Meds & Active Scripts Active Reported Lexapro (Escitalopram Oxalate) 20 Mg Tab 20 Mg PO TID Risperdal (Risperidone) 1 Mg Tab 1 Mg PO DAILY Gabapentin 600 Mg Tab 600 Mg PO TID Trazodone (Trazodone HCl) 50 Mg Tab 50 Mg PO HS Risperdal (Risperidone) 2 Mg Tab 2 Mg PO HS Review of Systems Except as stated in HPI: all other systems reviewed are Neg HENT: Positive: Sore Throat, Rhinitis, Congestion Physical Exam Narrative GENERAL: Alert male in no distress SKIN: Warm and dry. HEAD: Normocephalic. EYES: No scleral icterus. No injection or drainage. THROAT: Mild pharyngeal erythema no tonsillar hypertrophy or exudate. NECK: Supple, trachea midline. No JVD or lymphadenopathy. CARDIOVASCULAR: Regular rate and rhythm without murmurs, gallops, or rubs. RESPIRATORY: Breath sounds equal bilaterally. No accessory muscle use. GASTROINTESTINAL: Abdomen soft, non-tender, nondistended. MUSCULOSKELETAL: No cyanosis, or edema. BACK: Nontender without obvious deformity. No CVA tenderness. Data Data Last Documented VS Vital Signs Date Time Temp Pulse Resp B/P (MAP) Pulse Ox O2 Delivery O2 Flow Rate FiO2 10/01/17 09:33 98.3 88 20 147/81 (103) 96 MDM Medical Decision Making Medical Screen Exam Complete: Yes Emergency Medical Condition: Yes Differential Diagnosis URI, influenza, bronchitis, pneumonia Narrative Course 42-year-old male here with viral URI like symptoms. He is nontoxic appearing. His vital signs are stable. Symptomatically treatment discussed. Diagnosis Primary Impression: URI (upper respiratory infection) Qualified Codes: J06.9 - Acute upper respiratory infection, unspecified Referrals: [facility] Departure Forms: Tests/Procedures, Work Release Enter return to work date: Oct 03, 2017 Additional Instructions: Take [id number] ibuprofen 600 800 mg every 6-8 hours as needed for pain and fever. Stay well hydrated by drinking plenty of fluids. Scripts Benzonatate (Tessalon Perljose) 100 Mg Cap 200 MG PO TID Y for COUGH, #15 CAP 0 Refills Prov: Madelaine Shepard 10/01/17 Disposition: 01 DISCHARGE HOME Condition: Stable Madelaine Shepard Oct 01, 2017 10:09
== END 2017-10-01 10:15 | disposition home or self-care (01) ==
LOC: PHED 09:25
DX: J06.9 Acute upper respiratory infection, unspecified (principal); F17.200 Nicotine dependence, unspecified, uncomplicated; F31.9 Bipolar disorder, unspecified
CPT/HCPCS: 99283

== ENCOUNTER 2017-11-11 11:06 | Emergency (ER) | payer BC ==
[2017-11-11] MEDS: MORPHINE SULFATE 2 MG/ML INJ IM (12:42)
== END 2017-11-11 13:06 | disposition home or self-care (01) ==
LOC: NEPD 11:06
DX: M54.41 Lumbago with sciatica, right side (principal)
CPT/HCPCS: 96372; 99284-25

== ENCOUNTER 2018-02-17 16:27 | Emergency (ER) | payer BC ==
[~2018-02-17 16:27] MED LIST changes: -GABA600T PO; +PRED20 PO; -TRAZ50TA12 PO
[2018-02-17 16:31] VITALS: BP 143/94; PULSE 63; RESP 20; TEMP 98.5; O2SAT 96
--- NOTE | 2018-02-17 16:46 | PD ---
HPI Chief Complaint: Seizure Time Seen by Provider: 16:32 Travel History International Travel<30 days: No Contact w/Intl Traveler<30days: No Traveled to known affect area: No History of Present Illness HPI This patient's coworker called the ambulance. At work he was feeling like he might have a seizure. He did not actually have one today. He reported that he had a seizure yesterday. He has history of seizure disorder. He takes Neurontin 800 mg 4 times daily for his seizures. He follows with a neurologist regularly. He denies any alcohol or illicit drugs recently. His last cocaine use was 1-1/2 years ago. He has never done IV drugs. He feels okay now. Symptom severity is mild. He said seizure disorder for many years. Duration of his symptoms at work was 30 minutes. No alleviating factors. 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) Diabetes: No Diminished Hearing: No Genitourinary: No Implanted Vascular Access Dvce: No Musculoskeletal: Yes Neurologic: No Psychiatric: Yes (BIPOLAR) Reproductive: No Respiratory: No Immunizations Current: Yes Seizures: Yes Thyroid Disease: No Past Surgical History Endocrine Surgery: Yes (RIGHT BUTTOCK LANCED) Other Surgery: Yes (SPIDER BITE LANCED RIGHT BUTTOCK) Social History Alcohol Use: Yes (DENIES) Tobacco Use: Yes (1 ppd) Substance Use: No Allergies-Medications (Allergen,Severity, Reaction): Coded Allergies: penicillin G (Verified Allergy, Severe, Anaphylaxis, 11/11/17) Reported Meds & Prescriptions Reported Meds & Active Scripts Active Prednisone 20 Mg Tab 60 Mg PO DAILY 5 Days Reported Lexapro (Escitalopram Oxalate) 20 Mg Tab 20 Mg PO TID Risperdal (Risperidone) 1 Mg Tab 1 Mg PO DAILY Risperdal (Risperidone) 2 Mg Tab 2 Mg PO HS Review of Systems General / Constitutional: No: Fever Eyes: No: Visual changes HENT: No: Headaches Cardiovascular: No: Chest Pain or Discomfort Respiratory: No: Shortness of Breath Gastrointestinal: No: Abdominal Pain Genitourinary: No: Dysuria Musculoskeletal: No: Pain Skin: No Rash Neurologic: Positive: Seizures, No: Weakness Psychiatric: No: Depression Endocrine: No: Polydipsia Hematologic/Lymphatic: No: Easy Bruising Physical Exam Narrative GENERAL: Well-nourished, well-developed patient in no apparent distress. SKIN: Focused skin assessment reveals no rash and nodules. Skin is Warm and dry. HEAD: Atraumatic. Normocephalic. EYES: Pupils equal and round. No scleral icterus. No injection or drainage. ENT: No nasal bleeding or discharge. Mucous membranes pink and moist. NECK: Trachea midline. No JVD. CARDIOVASCULAR: Regular rate and rhythm. No murmur appreciated. RESPIRATORY: No accessory muscle use. Clear to auscultation. Breath sounds equal bilaterally. GASTROINTESTINAL: Abdomen soft, non-tender, nondistended. Hepatic and splenic margins not palpable. MUSCULOSKELETAL: No obvious deformities. No clubbing. No cyanosis. No edema. NEUROLOGICAL: Awake and alert. No obvious cranial nerve deficits. Motor grossly within normal limits. Normal speech. PSYCHIATRIC: Appropriate mood and affect; insight and judgment normal. Data Data Last Documented VS Vital Signs Date Time Temp Pulse Resp B/P (MAP) Pulse Ox O2 Delivery O2 Flow Rate FiO2 02/17/18 16:31 98.5 63 20 143/94 (110) 96 Orders Orders Complete Blood Count With Diff (02/17/18 16:38) Basic Metabolic Panel (Bmp) (02/17/18 16:38) Labs Laboratory Tests Test 02/17/18 16:44 White Blood Count 12.3 TH/MM3 Red Blood Count 4.99 MIL/MM3 Hemoglobin 14.9 GM/DL Hematocrit 43.5 % Mean Corpuscular Volume 87.2 FL Mean Corpuscular Hemoglobin 29.9 PG Mean Corpuscular Hemoglobin Concent 34.2 % Red Cell Distribution Width 12.3 % Platelet Count 212 TH/MM3 Mean Platelet Volume 8.3 FL Neutrophils (%) (Auto) 79.7 % Lymphocytes (%) (Auto) 11.4 % Monocytes (%) (Auto) 4.0 % Eosinophils (%) (Auto) 3.6 % Basophils (%) (Auto) 1.3 % Neutrophils # (Auto) 9.8 TH/MM3 Lymphocytes # (Auto) 1.4 TH/MM3 Monocytes # (Auto) 0.5 TH/MM3 Eosinophils # (Auto) 0.4 TH/MM3 Basophils # (Auto) 0.2 TH/MM3 CBC Comment DIFF FINAL Differential Comment Blood Urea Nitrogen 7 MG/DL Creatinine 1.10 MG/DL Random Glucose 87 MG/DL Calcium Level 9.1 MG/DL Sodium Level 140 MEQ/L Potassium Level 3.5 MEQ/L Chloride Level 104 MEQ/L Carbon Dioxide Level 32.5 MEQ/L Anion Gap 4 MEQ/L Estimat Glomerular Filtration Rate 73 ML/MIN MDM Medical Decision Making Medical Screen Exam Complete: Yes Emergency Medical Condition: Yes Medical Record Reviewed: Yes Differential Diagnosis Breakthrough seizure, anxiety, tremor Narrative Course I have reviewed the patient's electronic medical record. Patient was here for seizure in 2010. Positive cocaine at that time IV placed and labs sent He is neurologically intact CBC and metabolic profiles are reviewed. No emergent abnormalities noted I observed him for a while and he is symptom-free He should contact his neurologist for follow-up Diagnosis Primary Impression: Breakthrough seizure Additional Instructions: Follow-up with neurology Med/Other Pt SpecificInfo: Other Disposition: 01 DISCHARGE HOME Condition: Stable Sukhdev Muhammad MD Feb 17, 2018 16:46
[2018-02-17 16:49] LABS: AUTOMATED NEUTROPHIL # 9.8 TH/MM3 (1.8-7.7); BASOPHIL # 0.2 TH/MM3 (0-0.2); BASOPHIL % 1.3 % (0.0-2.0); EOSINOPHIL # 0.4 TH/MM3 (0-0.4); EOSINOPHIL % 3.6 % (0.0-4.0); HEMATOCRIT 43.5 % (39.0-51.0); HEMOGLOBIN 14.9 GM/DL (13.0-17.0); LYMPH % 11.4 % (9.0-44.0); LYMPHOCYTE # 1.4 TH/MM3 (1.0-4.8); MEAN CELL VOLUME 87.2 FL (80.0-100.0); MEAN CORPUSCULAR HEMOGLOBIN 29.9 PG (27.0-34.0); MEAN CORPUSCULAR HGB CONC 34.2 % (32.0-36.0); MEAN PLATELET VOLUME 8.3 FL (7.0-11.0); MONOCYTE # 0.5 TH/MM3 (0-0.9); NEUT % 79.7 % (16.0-70.0); PLATELET COUNT 212 TH/MM3 (150-450); RED BLOOD COUNT 4.99 MIL/MM3 (4.50-5.90); RED CELL DISTRIBUTION WIDTH 12.3 % (11.6-17.2); WHITE BLOOD COUNT 12.3 TH/MM3 (4.0-11.0)
[2018-02-17 17:06] LABS: CALCIUM 9.1 MG/DL (8.5-10.1)
[2018-02-17 17:07] LABS: BICARBONATE 32.5 MEQ/L (21.0-32.0)
[2018-02-17 17:10] LABS: CREATININE 1.1 MG/DL (0.60-1.30)
[2018-02-17 17:25] VITALS: BP 108/67; PULSE 82; RESP 16; O2SAT 97
== END 2018-02-17 17:35 | disposition home or self-care (01) ==
LOC: PHED 16:27
DX: G40.909 Epilepsy, unspecified, not intractable, without status epilepticus (principal); F31.9 Bipolar disorder, unspecified; F41.9 Anxiety disorder, unspecified; I69.392 Facial weakness following cerebral infarction; F17.200 Nicotine dependence, unspecified, uncomplicated
CPT/HCPCS: 80048; 85025; 99283

== ENCOUNTER 2018-03-24 09:23 | Emergency (ER) | payer BC ==
[~2018-03-24] VITALS: Ht 182.9 cm; Wt 103.5 kg
[2018-03-24 09:25] VITALS: BP 141/97; PULSE 72; RESP 16; TEMP 97.6; O2SAT 94
[2018-03-24] MEDS ORDERED: BUSP10TA PO (09:34)
[2018-03-24] MEDS ORDERED: SODIUM CHLORIDE 0.9% FLUSH 10 ML FLUSH IVF PRN (09:45)
--- NOTE | 2018-03-24 09:50 | PD ---
HPI Chief Complaint: Syncope/Near-Syncope Time Seen by Provider: 09:40 Travel History International Travel<30 days: No Contact w/Intl Traveler<30days: No Traveled to known affect area: No History of Present Illness HPI This patient had 2 episodes of getting dizzy and lightheaded immediately after going to the bathroom. They happened this morning. After the second time he passed out and fell backwards and struck his head and neck on the ground. His chief complaint is neck pain. He also complains of some headache. He does not think that he had a seizure. Reports compliance with his seizure medication. No alleviating factors. No exacerbating factors. 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) Diabetes: No Diminished Hearing: No Genitourinary: No Hepatitis: Yes (C) Implanted Vascular Access Dvce: No Musculoskeletal: Yes Neurologic: No Psychiatric: Yes (BIPOLAR) Reproductive: No Respiratory: No Immunizations Current: Yes Seizures: Yes Thyroid Disease: No Tetanus Vaccination: < 5 Years Influenza Vaccination: Yes Past Surgical History Endocrine Surgery: Yes (RIGHT BUTTOCK LANCED) Other Surgery: Yes (SPIDER BITE LANCED RIGHT BUTTOCK) Social History Alcohol Use: No Tobacco Use: Yes (1/2 PPD) Substance Use: No Allergies-Medications (Allergen,Severity, Reaction): Coded Allergies: penicillin G (Verified Allergy, Severe, Anaphylaxis, 03/24/18) Reported Meds & Prescriptions Reported Meds & Active Scripts Active Reported Buspirone (Buspirone HCl) 10 Mg Tab 10 Mg PO TID Lexapro (Escitalopram Oxalate) 20 Mg Tab 20 Mg PO TID Risperdal (Risperidone) 1 Mg Tab 1 Mg PO DAILY Risperdal (Risperidone) 2 Mg Tab 2 Mg PO HS Review of Systems General / Constitutional: No: Fever Eyes: No: Visual changes HENT: Positive: Headaches, Lightheadedness, Neck Pain Cardiovascular: Positive: Syncope, No: Chest Pain or Discomfort Respiratory: No: Shortness of Breath Gastrointestinal: No: Abdominal Pain Genitourinary: No: Dysuria Musculoskeletal: No: Pain Skin: No Rash Neurologic: Positive: Syncope, Headache, No: Weakness Psychiatric: No: Depression Endocrine: No: Polydipsia Hematologic/Lymphatic: No: Easy Bruising Physical Exam Narrative GENERAL: Well-nourished, well-developed patient in no apparent distress. SKIN: Focused skin assessment reveals no rash and nodules. Skin is Warm and dry. HEAD: Atraumatic. Normocephalic. EYES: Pupils equal and round. No scleral icterus. No injection or drainage. ENT: No nasal bleeding or discharge. Mucous membranes pink and moist. NECK: Trachea midline. No JVD. Has some midline tenderness without bruising or swelling. C-collar was applied by paramedics and is maintained CARDIOVASCULAR: Regular rate and rhythm. No murmur appreciated. RESPIRATORY: No accessory muscle use. Clear to auscultation. Breath sounds equal bilaterally. GASTROINTESTINAL: Abdomen soft, non-tender, nondistended. Hepatic and splenic margins not palpable. MUSCULOSKELETAL: No obvious deformities. No clubbing. No cyanosis. No edema. NEUROLOGICAL: Awake and alert. No obvious cranial nerve deficits. Motor grossly within normal limits. Normal speech. PSYCHIATRIC: Appropriate mood and affect; insight and judgment normal. Data Data Last Documented VS Vital Signs Date Time Temp Pulse Resp B/P (MAP) Pulse Ox O2 Delivery O2 Flow Rate FiO2 03/24/18 11:20 03/24/18 10:40 66 14 94 Room Air 03/24/18 09:25 97.6 Orders Orders Electrocardiogram (03/24/18 09:45) Basic Metabolic Panel (Bmp) (03/24/18 09:45) Complete Blood Count With Diff (03/24/18 09:45) Ct Brain W/O Iv Contrast(Rout) (03/24/18 09:45) Ct Cerv Spine W/O Contrast (03/24/18 09:45) Ecg Monitoring (03/24/18 09:45) Iv Access Insert/Monitor (03/24/18 09:45) Oximetry (03/24/18 09:45) Sodium Chloride 0.9% Flush (Ns Flush) (03/24/18 09:45) Labs Laboratory Tests Test 03/24/18 09:50 White Blood Count 6.4 TH/MM3 Red Blood Count 5.38 MIL/MM3 Hemoglobin 16.4 GM/DL Hematocrit 47.0 % Mean Corpuscular Volume 87.3 FL Mean Corpuscular Hemoglobin 30.4 PG Mean Corpuscular Hemoglobin Concent 34.8 % Red Cell Distribution Width 12.5 % Platelet Count 251 TH/MM3 Mean Platelet Volume 9.0 FL Neutrophils (%) (Auto) 59.8 % Lymphocytes (%) (Auto) 24.6 % Monocytes (%) (Auto) 7.4 % Eosinophils (%) (Auto) 7.2 % Basophils (%) (Auto) 1.0 % Neutrophils # (Auto) 3.7 TH/MM3 Lymphocytes # (Auto) 1.6 TH/MM3 Monocytes # (Auto) 0.5 TH/MM3 Eosinophils # (Auto) 0.5 TH/MM3 Basophils # (Auto) 0.1 TH/MM3 CBC Comment DIFF FINAL Differential Comment Blood Urea Nitrogen 10 MG/DL Creatinine 1.10 MG/DL Random Glucose 65 MG/DL Calcium Level 9.3 MG/DL Sodium Level 141 MEQ/L Potassium Level 4.1 MEQ/L Chloride Level 108 MEQ/L Carbon Dioxide Level 29.3 MEQ/L Anion Gap 4 MEQ/L Estimat Glomerular Filtration Rate 73 ML/MIN MDM Medical Decision Making Medical Screen Exam Complete: Yes Emergency Medical Condition: Yes Medical Record Reviewed: Yes Differential Diagnosis Cervical fracture, contusion, intracranial hemorrhage, vasovagal episode, cardiac arrhythmia Narrative Course I have reviewed the patient's electronic medical record. I saw this patient 1 month ago for seizure IV placed and labs sent I reviewed his EKG which is normal No objective findings on exam Brain CT is negative Cervical spine CT shows minor arthritic change Lab studies are normal except for mild borderline hypoglycemia. He has been drinking Gatorade here Extended cardiac monitoring reveals sinus rhythm without ectopy I observed him for a while without any symptoms. I ambulate him in the department and he did well Diagnosis Primary Impression: Syncope Qualified Codes: R55 - Syncope and collapse Additional Instructions: The patient was advised to follow up with their physician and return if they worsen. Small frequent meals and snacks today to avoid hypoglycemia Med/Other Pt SpecificInfo: Other Disposition: 01 DISCHARGE HOME Condition: Stable Sukhdev Muhammad MD Mar 24, 2018 09:50
[2018-03-24 09:55] VITALS: O2SAT 95
[2018-03-24 10:07] LABS: AUTOMATED NEUTROPHIL # 3.7 TH/MM3 (1.8-7.7); BASOPHIL # 0.1 TH/MM3 (0-0.2); EOSINOPHIL # 0.5 TH/MM3 (0-0.4); EOSINOPHIL % 7.2 % (0.0-4.0); HEMOGLOBIN 16.4 GM/DL (13.0-17.0); LYMPH % 24.6 % (9.0-44.0); LYMPHOCYTE # 1.6 TH/MM3 (1.0-4.8); MEAN CELL VOLUME 87.3 FL (80.0-100.0); MEAN CORPUSCULAR HEMOGLOBIN 30.4 PG (27.0-34.0); MEAN CORPUSCULAR HGB CONC 34.8 % (32.0-36.0); MONO % 7.4 % (0.0-8.0); MONOCYTE # 0.5 TH/MM3 (0-0.9); NEUT % 59.8 % (16.0-70.0); PLATELET COUNT 251 TH/MM3 (150-450); RED BLOOD COUNT 5.38 MIL/MM3 (4.50-5.90); RED CELL DISTRIBUTION WIDTH 12.5 % (11.6-17.2); WHITE BLOOD COUNT 6.4 TH/MM3 (4.0-11.0)
[2018-03-24 10:17] LABS: CALCIUM 9.3 MG/DL (8.5-10.1)
[2018-03-24 10:18] LABS: BICARBONATE 29.3 MEQ/L (21.0-32.0)
[2018-03-24 10:21] LABS: CREATININE 1.1 MG/DL (0.60-1.30)
--- NOTE | 2018-03-24 10:23 | RADRPT ---
EXAM DATE: 03/24/2018 10:17 AM EDT AGE/SEX: 42 years / Male INDICATIONS: Syncopal episode. Fell back and hit head. Pain. CLINICAL DATA: This is the patient's initial encounter. Patient reports that signs and symptoms have been present for 1 day and indicates a pain score of 4/10. MEDICAL/SURGICAL HISTORY: Cerebrovascular disease. Seizure. . Jaw surgery. RADIATION DOSE: 64.26 CTDI (mGy) COMPARISON: [facility] – [place], CT BRAIN W/O CONTRAST, 06/06/2011. . TECHNIQUE: CT of the head without contrast. Using automated exposure control and adjustment of the mA and/or kV according to patient size, radiation dose was kept as low as reasonably achievable to ob tain optimal diagnostic quality images. FINDINGS: Cerebrum: The ventricles are normal. No midline shift, mass lesion, hemorrhage or acute infarction. No extraaxial fluid collections are seen. Posterior Fossa: The cerebellum and brainstem demonstrate no acute abnormality. The 4th ventricle is midline. The cerebellopontine angle is within normal limits. Extracranial: The visualized sinuses are clear. Skull: The calvaria is intact. No skull fracture. CONCLUSION: Negative noncontrast head CT. No acute finding is identified. Electronically signed by: Catrachito Hillman MD 03/24/2018 10:22 AM EDT
[2018-03-24 10:40] VITALS: BP 149/86; PULSE 66; RESP 14; O2SAT 94
--- NOTE | 2018-03-24 10:51 | RADRPT ---
EXAM DATE: 03/24/2018 10:21 AM EDT AGE/SEX: 42 years / Male INDICATIONS: Syncopal episode. Fell back and hit head. Neck pain. CLINICAL DATA: This is the patient's initial encounter. Patient reports that signs and symptoms have been present for 1 day and indicates a pain score of 5/10. MEDICAL/SURGICAL HISTORY: Cerebrovascular disease. Seizure. . Jaw surgery. RADIATION DOSE: 26.67 CTDI (mGy) COMPARISON: No prior [place] exams available for comparison. TECHNIQUE: Contiguous axial images were obtained using helical multirow detector technique. The vol umetric data was post-processed with multiplanar reconstruction in oblique axial, sagittal, and coron al planes. Using automated exposure control and adjustment of the mA and/or kV according to patient s ize, radiation dose was kept as low as reasonably achievable to obtain optimal diagnostic quality neena ges. FINDINGS: There is normal sagittal spinal alignment. No fracture or dislocation is identified. There is no ante rolisthesis or retrolisthesis. The atlantoaxial relationship is normal limits and there is no prevert ebral soft tissue swelling. Endplate osteophytes are present anteriorly at C4 and extending through C 7. No disc herniation is identified and no canal stenosis is seen. The visualized paraspinous structures demonstrate no acute finding. CONCLUSION: No acute cervical spine abnormality is identified. There are mild degenerative changes, as above. Electronically signed by: Catrachito Hillman MD 03/24/2018 10:49 AM EDT
--- NOTE | 2018-03-25 16:09 | EKG ---
Date Performed: 03/24/2018 Time Performed: 09:26:00 PTAGE: 42 years EKG: Sinus rhythm NORMAL ECG INTERPRETATION BASED ON A DEFAULT AGE OF 39 YEARS Since the PREVIOUS TRACING , no significant change noted PREVIOUS TRACIN02/13/2012@15.33 DOCTOR: Wendy Griffith Interpretating Date/Time 03/25/2018 16:08:33
== END 2018-03-24 11:55 | disposition home or self-care (01) ==
LOC: PHED 09:23
DX: R55 Syncope and collapse (principal); M54.2 Cervicalgia; R51 Headache; W19.XXXA Unspecified fall, initial encounter; F31.9 Bipolar disorder, unspecified; F41.9 Anxiety disorder, unspecified; I69.392 Facial weakness following cerebral infarction; F17.200 Nicotine dependence, unspecified, uncomplicated
CPT/HCPCS: 70450; 72125; 80048; 85025; 93005; 99285

== ENCOUNTER 2018-04-08 09:14 | Emergency (ER) | payer BC ==
[~2018-04-08] VITALS: Ht 185.4 cm; Wt 100.0 kg
[~2018-04-08 09:14] MED LIST changes: +BUSP10TA PO; -PRED20 PO
[2018-04-08 09:20] VITALS: BP 109/65; PULSE 78; RESP 20; TEMP 98.3; O2SAT 96
[2018-04-08] MEDS ORDERED: GABA800T PO (09:25)
[2018-04-08] MEDS ORDERED: SODIUM CHLORIDE 0.9% FLUSH 10 ML FLUSH IVF PRN (09:30)
[2018-04-08 09:40] LABS: AUTOMATED NEUTROPHIL # 6.4 TH/MM3 (1.8-7.7); BASOPHIL % 0.3 % (0.0-2.0); EOSINOPHIL # 0.5 TH/MM3 (0-0.4); EOSINOPHIL % 5.7 % (0.0-4.0); HEMATOCRIT 44.6 % (39.0-51.0); HEMOGLOBIN 15.3 GM/DL (13.0-17.0); LYMPH % 11.2 % (9.0-44.0); LYMPHOCYTE # 0.9 TH/MM3 (1.0-4.8); MEAN CELL VOLUME 87.8 FL (80.0-100.0); MEAN CORPUSCULAR HEMOGLOBIN 30.2 PG (27.0-34.0); MEAN CORPUSCULAR HGB CONC 34.3 % (32.0-36.0); MEAN PLATELET VOLUME 8.5 FL (7.0-11.0); MONOCYTE # 0.6 TH/MM3 (0-0.9); NEUT % 75.8 % (16.0-70.0); PLATELET COUNT 229 TH/MM3 (150-450); RED BLOOD COUNT 5.08 MIL/MM3 (4.50-5.90); WHITE BLOOD COUNT 8.4 TH/MM3 (4.0-11.0)
--- NOTE | 2018-04-08 09:48 | PD ---
HPI Chief Complaint: Abdominal Pain Time Seen by Provider: 09:23 Travel History International Travel<30 days: No Contact w/Intl Traveler<30days: No Traveled to known affect area: No History of Present Illness HPI 42 y/o male presents with vomiting coffee-like material and black stools with abdominal pain since yesterday. He denies prior history of this. He denies prior scope. He denies any other concurrent complaints. He states he just feels off. He denies specific modifying factors. Quality is coffee like. Severity is a couple of episodes. He denies migration of the pain. Duration is one day. PFSH Past Medical History Autoimmune Disease: No Bipolar Disorder: Yes Anxiety: Yes Depression: Yes Cancer: No Cardiovascular Problems: No Cerebrovascular Accident: Yes (DEFICIT- R. SIDED FACIAL WEAKNESS) Diabetes: Yes Patient Takes Glucophage: No Diminished Hearing: No Genitourinary: No Hepatitis: Yes (C) Implanted Vascular Access Dvce: No Musculoskeletal: Yes Neurologic: No Psychiatric: Yes (BIPOLAR) Reproductive: No Respiratory: No Immunizations Current: Yes Seizures: Yes Thyroid Disease: No Tetanus Vaccination: < 5 Years Influenza Vaccination: Yes Past Surgical History Endocrine Surgery: Yes (RIGHT BUTTOCK LANCED) Other Surgery: Yes (I&D SPIDER BITE LANCED RIGHT BUTTOCK) Social History Alcohol Use: No Tobacco Use: Yes (1/2 PPD) Substance Use: No Allergies-Medications (Allergen,Severity, Reaction): Coded Allergies: penicillin G (Verified Allergy, Severe, Anaphylaxis, 04/08/18) Reported Meds & Prescriptions Reported Meds & Active Scripts Active Phenergan (Promethazine HCl) 25 Mg Tablet 25 Mg PO Q8HR PRN Reported Gabapentin 800 Mg Tab 800 Mg PO TID Buspirone (Buspirone HCl) 10 Mg Tab 10 Mg PO TID Risperdal (Risperidone) 2 Mg Tab 2 Mg PO HS Review of Systems Except as stated in HPI: all other systems reviewed are Neg Physical Exam Narrative GENERAL: 42-year-old male in no apparent distress SKIN: Focused skin assessment warm/dry. HEAD: Atraumatic. Normocephalic. EYES: Pupils equal and round. No scleral icterus. No injection or drainage. ENT: No nasal bleeding or discharge. Mucous membranes pink and moist. NECK: Trachea midline. No JVD. CARDIOVASCULAR: Regular rate and rhythm. RESPIRATORY: No accessory muscle use. No increased effort GASTROINTESTINAL: Abdomen soft, non-tender, nondistended. MUSCULOSKELETAL: No obvious deformities. No clubbing. No cyanosis. RECTAL EXAM: Performed with fence erector supervisor and after permission. No external hemorrhoid or fissure, stool is brown, non-bloody. NEUROLOGICAL: Awake and alert. Motor grossly within normal limits. Normal speech Data Data Last Documented VS Vital Signs Date Time Temp Pulse Resp B/P (MAP) Pulse Ox O2 Delivery O2 Flow Rate FiO2 04/08/18 09:20 98.3 78 20 109/65 (80) 96 Orders Orders Complete Blood Count With Diff (04/08/18:24) Comprehensive Metabolic Panel (04/08/18:24) Lipase (04/08/18:24) Prothrombin Time / Inr (Pt) (04/08/18:24) Act Partial Throm Time (Ptt) (04/08/18:24) Alcohol (Ethanol) (04/08/18 09:24) Urinalysis - C+S If Indicated (04/08/18:24) Type And Screen (04/08/18:24) Ecg Monitoring (04/08/18:24) Iv Access Insert/Monitor (04/08/18 09:24) Oximetry (04/08/18 09:24) Sodium Chloride 0.9% Flush (Ns Flush) (04/08/18 09:30) Ct Abd/Pel W Iv Contrast(Rout) (04/08/18 ) Iohexol 350 Inj (Omnipaque 350 Inj) (04/08/18 10:29) Oral Rehydration (04/08/18 10:48) Ed Discharge Order (04/08/18 11:50) Labs Laboratory Tests Test 04/08/18 09:30 04/08/18 09:58 White Blood Count 8.4 TH/MM3 Red Blood Count 5.08 MIL/MM3 Hemoglobin 15.3 GM/DL Hematocrit 44.6 % Mean Corpuscular Volume 87.8 FL Mean Corpuscular Hemoglobin 30.2 PG Mean Corpuscular Hemoglobin Concent 34.3 % Red Cell Distribution Width 13.0 % Platelet Count 229 TH/MM3 Mean Platelet Volume 8.5 FL Neutrophils (%) (Auto) 75.8 % Lymphocytes (%) (Auto) 11.2 % Monocytes (%) (Auto) 7.0 % Eosinophils (%) (Auto) 5.7 % Basophils (%) (Auto) 0.3 % Neutrophils # (Auto) 6.4 TH/MM3 Lymphocytes # (Auto) 0.9 TH/MM3 Monocytes # (Auto) 0.6 TH/MM3 Eosinophils # (Auto) 0.5 TH/MM3 Basophils # (Auto) 0.0 TH/MM3 CBC Comment DIFF FINAL Differential Comment Prothrombin Time 10.3 SEC Prothromb Time International Ratio 1.0 RATIO Activated Partial Thromboplast Time 25.3 SEC Blood Urea Nitrogen 10 MG/DL Creatinine 1.15 MG/DL Random Glucose 88 MG/DL Total Protein 7.3 GM/DL Albumin 3.4 GM/DL Calcium Level 8.4 MG/DL Alkaline Phosphatase 81 U/L Aspartate Amino Transf (AST/SGOT) 54 U/L Alanine Aminotransferase (ALT/SGPT) 54 U/L Total Bilirubin 0.7 MG/DL Sodium Level 141 MEQ/L Potassium Level 4.6 MEQ/L Chloride Level 109 MEQ/L Carbon Dioxide Level 25.1 MEQ/L Anion Gap 7 MEQ/L Estimat Glomerular Filtration Rate 69 ML/MIN Lipase 92 U/L Ethyl Alcohol Level LESS THAN 3 MG/DL Urine Color YELLOW Urine Turbidity CLEAR Urine pH 6.0 Urine Specific [place] 1.012 Urine Protein NEG mg/dL Urine Glucose (UA) NEG mg/dL Urine Ketones NEG mg/dL Urine Occult Blood NEG Urine Nitrite NEG Urine Bilirubin NEG Urine Urobilinogen LESS THAN 2 mg/dL Urine Leukocyte Esterase NEG Urine RBC LESS THAN 1 /hpf Urine Bacteria RARE /hpf Microscopic Urinalysis Comment CULT NOT INDICATED MDM Medical Decision Making Medical Screen Exam Complete: Yes Emergency Medical Condition: Yes Medical Record Reviewed: Yes (Past history confirmed) Interpretation(s) CBC & BMP Diagram 04/08/18 09:30 Total Protein 7.3, Albumin 3.4, Calcium Level 8.4 L, Alkaline Phosphatase 81, Aspartate Amino Transf (AST/SGOT) 54 H, Alanine Aminotransferase (ALT/SGPT) 54, Total Bilirubin 0.7 Last 24 hours Impressions Abdomen/Pelvis CT 04/08/18 0000 Signed Impressions: CONCLUSION: 1. Unremarkable and stable CT scan of the abdomen and pelvis compared to 2010. 2. Mild bibasilar atelectasis. Differential Diagnosis Gastritis, gastroenteritis, colitis, diverticulitis Narrative Course Will check blood work, urinalysis, CT and reevaluate Labs, imaging without emergent process. No emesis here and tolerated a large amount of Gatorade without nausea or vomiting. Guaiac is negative, patient denies any new complaints and states that they are feeling better. Patient happy with care, all questions answered. Patient knows that follow up is incumbent on them and to return to the emergency room immediately if new or worsening symptoms develop. Patient given strict return precautions, vitals reviewed and are normal, agrees to further workup as an outpatient. Diagnosis Primary Impression: Abdominal pain Qualified Codes: R10.84 - Generalized abdominal pain Additional Impression: Vomiting and diarrhea Patient Instructions: General Instructions Additional Instructions: return as needed, follow with primary tommorrow, phenergan as needed Med/Other Pt SpecificInfo: Prescription(s) given Scripts Promethazine (Phenergan) 25 Mg Tablet 25 MG PO Q8HR Y for NAUSEA OR VOMITING, #3 TAB 0 Refills Prov: Norma Aguirre MD 04/08/18 Disposition: 01 DISCHARGE HOME Condition: Stable Norma Aguirre MD Apr 08, 2018 09:48
[2018-04-08 09:53] LABS: PROTHROMBIN TIME - PATIENT 10.3 SEC (9.8-11.6)
[2018-04-08 10:01] LABS: ALKALINE PHOSPHATASE 81 U/L (45-117); ALT (GPT) 54 U/L (12-78); TOTAL BILIRUBIN ADULT 0.7 MG/DL (0.2-1.0); TOTAL PROTEIN 7.3 GM/DL (6.4-8.2)
[2018-04-08 10:02] LABS: ALBUMIN 3.4 GM/DL (3.4-5.0); BICARBONATE 25.1 MEQ/L (21.0-32.0); BLOOD UREA NITROGEN 10 MG/DL (7-18); CALCIUM 8.4 MG/DL (8.5-10.1); CHLORIDE 109 MEQ/L (98-107); CREATININE 1.15 MG/DL (0.60-1.30); GLOMERULAR FILTRATION RATE 69 ML/MIN (>89); GLUCOSE,RANDOM 88 MG/DL (74-106); SODIUM (NA) 141 MEQ/L (136-145)
[2018-04-08 10:04] LABS: AST (GOT) 54 U/L (15-37)
[2018-04-08] MEDS ORDERED: IOHEXOL 350 MG/ML 10 ML VIAL (for RAD DIAG) IVCONTRAST ONE (10:29)
[2018-04-08 10:37] LABS: BACTERIA, URINE RARE /hpf; BILIRUBIN, URINE NEG (NEG); BLOOD, URINE NEG (NEG); GLUCOSE,URINE NEG (NEG); KETONE, URINE NEG (NEG); NITRITE,URINE NEG (NEG); URINE COLOR YELLOW (YELLW/STRAW); URINE LEUKOCYTE ESTERASE NEG (NEG)
--- NOTE | 2018-04-08 10:44 | RADRPT ---
EXAM DATE: 04/08/2018 10:34 AM EDT AGE/SEX: 42 years / Male INDICATIONS: Right lower quadrant pain with coffee ground emesis CLINICAL DATA: This is the patient's initial encounter. Patient reports that signs and symptoms have been present for 1 day and indicates a pain score of 5/10. MEDICAL/SURGICAL HISTORY: Diabetes. Hepatitis C. None. ORAL CONTRAST: No oral contrast ingested. RADIATION DOSE: 8.37 CTDI (mGy) [place] [facility] [place] 08/19/2011. . TECHNIQUE: Multiple contiguous axial images were obtained through the abdomen and pelvis following b olus infusion of 96 ml Omnipaque 350 (iohexol) nonionic water-soluble contrast as a single exam dos e. No oral contrast ingested. Using automated exposure control and adjustment of the mA and/or kV ac cording to patient size, radiation dose was kept as low as reasonably achievable to obtain optimal di agnostic quality images. DICOM format image data is available electronically for review and comparis on. FINDINGS: Lower Lungs: Mild bibasilar atelectasis, right greater than left. Liver: The liver has a homogeneous density without space-occupying lesion. There is no dilation of th e biliary tree. Spleen: Homogeneous density without enlargement. Pancreas: Unremarkable without mass or calcification. Kidneys: Normal in size and shape. No evidence of mass or hydronephrosis. Adrenal Glands: Unremarkable. Aorta: The aorta and proximal iliac vessels are grossly unremarkable without aneurysmal dilation. Bowel/Mesentery: The bowel loops are grossly unremarkable. The cecum and sigmoid colon have a normal configuration. The appendix is unremarkable. No inflammatory changes. Abdominal Wall: Intact. Retroperitoneum: No evidence of adenopathy in the retrocrural, para-aortic, or deep pelvic regions. Bladder: Contours are smooth. Reproductive Organs: No abnormal masses or calcifications seen. Inguinal: The inguinal region is unremarkable without evidence of adenopathy. Bony Structures: Mild degenerative changes. Stable exam compared to the prior study from 2010.. CONCLUSION: 1. Unremarkable and stable CT scan of the abdomen and pelvis compared to 2010. 2. Mild bibasilar atelectasis. Electronically signed by: Bartolome Nuno MD 04/08/2018 10:43 AM EDT
[2018-04-08] MEDS ORDERED: PROM25TA10 PO (11:51)
== END 2018-04-08 12:14 | disposition home or self-care (01) ==
LOC: NEPE 09:14
DX: R10.84 Generalized abdominal pain (principal); R11.10 Vomiting, unspecified; R19.7 Diarrhea, unspecified; J98.11 Atelectasis; F31.9 Bipolar disorder, unspecified; F41.9 Anxiety disorder, unspecified; M62.81 Muscle weakness (generalized); E11.9 Type 2 diabetes mellitus without complications; F17.200 Nicotine dependence, unspecified, uncomplicated; Z86.19 Personal history of other infectious and parasitic diseases; Z86.69 Personal history of other diseases of the nervous system and sense organs; Z79.899 Other long term (current) drug therapy; Z88.0 Allergy status to penicillin
CPT/HCPCS: 74177; 80053; 80307; 81001; 83690; 85025; 85610; 85730; 86850; 86900; 86901; 99284; Q9967